=== PATIENT | female | born 1980 | race Caucasian/White ===

== ENCOUNTER → 2016-08-09 | Outpatient (CLI) | payer OTHER ==
[2016-08-09 12:27] LABS: HEMATOCRIT 37.7 % (37-47); MEAN CELL VOLUME 83.6 fL (80-100); MEAN CORPUSCULAR HEMOGLOBIN 27.5 pg (25-34); MEAN CORPUSCULAR HGB CONC 32.9 g/dl (32-36); MEAN PLATELET VOLUME 10.1 fL (7.4-10.4); PLATELET COUNT 315 K/uL (130-400); RED BLOOD COUNT 4.51 M/uL (4.2-5.4); WHITE BLOOD COUNT 8.56 K/uL (4.8-10.8)
[2016-08-09 12:49] LABS: PROLACTIN 7.71 ng/mL
== END | disposition home or self-care (01) ==
LOC: C.LAB 10:27
PROVIDERS: ATTEND Obstetrics & Gynecology
DX: E28.2 Polycystic ovarian syndrome (principal); E03.9 Hypothyroidism, unspecified

== ENCOUNTER → 2016-10-04 | Outpatient (CLI) | payer OTHER ==
[~2016-10-04] MED LIST: DOCU-94 PO; POLY335019 PO; PRENTAB26 PO; RANI150T3 PO; SYN175 PO
== END | disposition home or self-care (01) ==
LOC: C.LAB 18:14
PROVIDERS: ATTEND Obstetrics & Gynecology
DX: E03.9 Hypothyroidism, unspecified (principal)

== ENCOUNTER → 2016-10-30 | Outpatient (CLI) | payer OTHER | END | disposition home or self-care (01) | LOC: C.LAB 13:20 | PROVIDERS: ATTEND Obstetrics & Gynecology | DX: E03.9 Hypothyroidism, unspecified (principal); Z32.00 Encounter for pregnancy test, result unknown ==

== ENCOUNTER → 2016-11-01 | Outpatient (CLI) | payer OTHER | END | disposition home or self-care (01) | LOC: C.LAB 18:43 | PROVIDERS: ATTEND Obstetrics & Gynecology | DX: Z32.00 Encounter for pregnancy test, result unknown (principal) ==

== ENCOUNTER → 2016-11-15 | Outpatient (CLI) | payer OTHER ==
[2016-11-15 12:28] LABS: THYROID STIMULATING HORMONE 4.01 uIu/ml (0.300-4.500)
== END | disposition home or self-care (01) ==
LOC: C.LAB1850 09:59
PROVIDERS: ATTEND Internal Medicine Endocrinology, Diabetes & Metabolism
DX: Z32.00 Encounter for pregnancy test, result unknown (principal); E03.9 Hypothyroidism, unspecified

== ENCOUNTER → 2016-11-27 | Outpatient (CLI) | payer OTHER ==
[2016-11-27 12:14] LABS: BASO % 0.2 %; BASO ABS # 0.02 K/uL (0-0.2); COMPLETE YES; HEMATOCRIT 36.2 % (37-47); IG% 0.2 %; LYMPH % 15.3 %; LYMPH ABS # 1.52 K/uL (1.2-3.4); MEAN CELL VOLUME 84.8 fL (80-100); MEAN CORPUSCULAR HEMOGLOBIN 27.9 pg (25-34); MEAN CORPUSCULAR HGB CONC 32.9 g/dl (32-36); MEAN PLATELET VOLUME 10.3 fL (7.4-10.4); MONO % 6.6 %; NEUT % 76.7 %; PLATELET COUNT 292 K/uL (130-400); RED BLOOD COUNT 4.27 M/uL (4.2-5.4); WHITE BLOOD COUNT 9.96 K/uL (4.8-10.8)
== END | disposition home or self-care (01) ==
LOC: C.LAB1850 10:43
PROVIDERS: ATTEND Obstetrics & Gynecology
DX: O09.299 Supervision of pregnancy with other poor reproductive or obstetric history, unspecified trimester (principal)

== ENCOUNTER → 2016-11-27 | Outpatient (CLI) | payer OTHER ==
[2016-11-27 14:31] LABS: URINE APPEARANCE CLEAR (CLEAR); URINE BILIRUBIN NEG (NEG); URINE COLOR DK YELLOW; URINE EPITHELIAL CELL AUTO >30 /lpf (0-5); URINE NITRITE NEG (NEG); URINE SPECIFIC GRAVITY 1.023 (1.000-1.030); UROBILINOGEN NEG (NEG)
[2016-11-27 14:32] LABS: MANUAL MICROSCOPIC REQUIRED? NO; REVIEW REQ? YES
[2016-11-29 15:37] LABS: CHLAMYDIA TRACH RNA*** NOT DETECTED (NOT DETECTED); GC (NEIS GONORRHOEAE)RNA** NOT DETECTED (NOT DETECTED)
== END | disposition home or self-care (01) ==
LOC: C.LABSPEC 13:42
PROVIDERS: ATTEND Obstetrics & Gynecology
DX: O09.299 Supervision of pregnancy with other poor reproductive or obstetric history, unspecified trimester (principal)

== ENCOUNTER → 2016-12-11 | Outpatient (CLI) | payer OTHER | END | disposition home or self-care (01) | LOC: C.LAB1850 10:34 | PROVIDERS: ATTEND Internal Medicine Endocrinology, Diabetes & Metabolism | DX: E03.9 Hypothyroidism, unspecified (principal) ==

== ENCOUNTER → 2017-01-16 | Outpatient (CLI) | payer OTHER | END | disposition home or self-care (01) | LOC: C.LAB 18:14 | PROVIDERS: ATTEND Internal Medicine Endocrinology, Diabetes & Metabolism | DX: E03.9 Hypothyroidism, unspecified (principal) ==

== ENCOUNTER → 2017-01-23 | Outpatient (CLI) | payer OTHER ==
[2017-01-23 12:50] LABS: GTGD 50 Grams
[2017-01-25 14:53] LABS: AFP CONCENTRATION 26.3 NG/ML; AFPTS GESTATIONAL AGE 16.1 WEEKS; AFPTS INSULIN DEP DIABETIC? NO; AFPTS MATERNAL WT 255 LBS; ALPHA-FETOPROTEIN RACE CAUCASIAN=W; HISTORY OF NTD NO; REPEAT SAMPLE? NO
== END | disposition home or self-care (01) ==
LOC: C.LAB1850 09:15
PROVIDERS: ATTEND Obstetrics & Gynecology
DX: O09.511 Supervision of elderly primigravida, first trimester (principal); Z3A.00 Weeks of gestation of pregnancy not specified

== ENCOUNTER → 2017-02-14 | Outpatient (CLI) | payer OTHER | END | disposition home or self-care (01) | LOC: C.LAB 18:04 | PROVIDERS: ATTEND Internal Medicine Endocrinology, Diabetes & Metabolism | DX: E03.9 Hypothyroidism, unspecified (principal) ==

== ENCOUNTER 2017-04-13 12:20 | Outpatient (CLI) | payer OTHER ==
[~2017-04-13] VITALS: Ht 162.6 cm; Wt 116.1 kg
[2017-04-13 14:11] LABS: THYROID STIMULATING HORMONE 1.06 uIu/ml (0.300-4.500)
[2017-04-13 16:49] VITALS: Ht 162.6 cm; Wt 116.1 kg
[2017-04-13] MEDS ORDERED: RANI150T3 PO (16:52)
[2017-04-13] MEDS ORDERED: POLY335019 PO (16:52)
[2017-04-13] MEDS ORDERED: PRENTAB26 PO (16:52)
[2017-04-13] MEDS ORDERED: SYN175 PO (16:52)
[2017-04-13] MEDS ORDERED: DOCU-94 PO (16:52)
== END 2017-04-13 16:00 | disposition home or self-care (01) ==
LOC: C.OPB 12:20 → C.LD 12:21 → C.OPB 16:00
PROVIDERS: ATTEND Obstetrics & Gynecology
DX: O99.412 Diseases of the circulatory system complicating pregnancy, second trimester (principal); R00.2 Palpitations; O09.522 Supervision of elderly multigravida, second trimester; O99.282 Endocrine, nutritional and metabolic diseases complicating pregnancy, second trimester; O99.212 Obesity complicating pregnancy, second trimester; E66.9 Obesity, unspecified; Z3A.27 27 weeks gestation of pregnancy

== ENCOUNTER → 2017-04-18 | Outpatient (CLI) | payer OTHER ==
[2017-04-18 13:23] LABS: HEMATOCRIT 32.8 % (37-47)
[2017-04-18 13:33] LABS: GTGD 50 Grams
[2017-04-18 14:15] LABS: URINE APPEARANCE CLEAR (CLEAR); URINE BILIRUBIN NEG (NEG); URINE COLOR YELLOW; URINE NITRITE NEG (NEG); URINE PH 7.5 (4.5-7.5); URINE SPECIFIC GRAVITY 1.008 (1.000-1.030); UROBILINOGEN NEG (NEG)
[2017-04-18 14:16] LABS: MANUAL MICROSCOPIC REQUIRED? NO; REVIEW REQ? NO
== END | disposition home or self-care (01) ==
LOC: C.LAB1850 11:11
PROVIDERS: ATTEND Obstetrics & Gynecology
DX: O09.513 Supervision of elderly primigravida, third trimester (principal); Z3A.00 Weeks of gestation of pregnancy not specified

== ENCOUNTER → 2017-06-12 | Outpatient (CLI) | payer OTHER | END | disposition home or self-care (01) | LOC: C.LABSPEC 13:38 | PROVIDERS: ATTEND Obstetrics & Gynecology | DX: O09.513 Supervision of elderly primigravida, third trimester (principal) ==

== ENCOUNTER 2017-07-07 15:43 | Inpatient (IN) | payer OTHER ==
[~2017-07-07] VITALS: Ht 162.6 cm; Wt 125.0 kg
[2017-07-07 17:21] VITALS: Ht 162.6 cm; Wt 125.0 kg
[2017-07-07] MEDS ORDERED: LACTATED RINGER'S 1000ML 1,000 ML IV PRN (17:33)
[2017-07-07] MEDS ORDERED: LACTATED RINGER'S 1000ML 500 ML IV PRN ×2 (17:43→22:17)
[2017-07-07] MEDS ORDERED: OXYTOCIN 30 UNITS/500ML NSS IV PRN (17:45)
[2017-07-07 17:55] LABS: HEMATOCRIT 33.1 % (37-47); HEMOGLOBIN 11.3 g/dL (12.0-16.0); MEAN CORPUSCULAR HEMOGLOBIN 29.4 pg (25-34); MEAN CORPUSCULAR HGB CONC 34.1 g/dl (32-36); MEAN PLATELET VOLUME 11.4 fL (7.4-10.4); PLATELET COUNT 193 K/uL (130-400); RED CELL DISTRIBUTION WIDTH CV 14.9 % (11.5-14.5); RED CELL DISTRIBUTION WIDTH SD 46.5 fL (36.4-46.3); WHITE BLOOD COUNT 9.71 K/uL (4.8-10.8)
[2017-07-07] MEDS: LACTATED RINGER'S 1000ML 1,000 ML IV SCH (18:06)
[2017-07-07] MEDS ORDERED: EpHEDrine SULFATE INJ 50 MG/ML AMP ONE (20:19)
[2017-07-07] MEDS ORDERED: BUPIVACAINE 0.25% 30 ML VIAL ONE (20:19)
[2017-07-07] MEDS ORDERED: FENTANYL 2MCG/ML ROPIV 1.25MG/ML 100ML BAG EPI ONE (20:20)
[2017-07-07] MEDS ORDERED: FENTANYL CITRATE INJ 50 MCG/1 ML 2 ML VIAL ONE (20:20)
[2017-07-07] MEDS ORDERED: LIDOCAINE/EPINEPHRINE 2% 1:200,000 20 ML SDV ONE (21:57)
[2017-07-07] MEDS ORDERED: NALOXONE HCL INJ 1 MG in SODIUM CHLORIDE 0.9% 1000ML 1,000 ML IV PRN (22:17)
[2017-07-07] MEDS ORDERED: ONDANSETRON INJ 2 MG/ML 2 ML VIAL IV PRN (22:30)
[2017-07-07] MEDS ORDERED: DiphenhydrAMINE HCL 50 MG/ML VIAL IV PRN (22:30)
[2017-07-07] MEDS ORDERED: EpHEDrine SULFATE INJ 50 MG/ML AMP IV PRN (22:30)
[2017-07-07] MEDS ORDERED: NALOXONE HCL INJ 0.4 MG/1 ML VIAL/CARP IV PRN (22:30)
[2017-07-07] MEDS: FENTANYL 2MCG/ML ROPIV 1.25MG/ML 100ML BAG EPI PRN ×2 (22:55→23:30)
[2017-07-07] MEDS ORDERED: NURSING VERBAL MED ORDER ONE (23:45)
[2017-07-08] MEDS ORDERED: BUPIVACAINE 0.25% 30 ML VIAL ONE (00:32)
[2017-07-08] MEDS ORDERED: EpHEDrine SULFATE INJ 50 MG/ML AMP ONE (00:32)
[2017-07-08] MEDS ORDERED: FENTANYL 2MCG/ML ROPIV 1.25MG/ML 100ML BAG EPI ONE (00:33)
[2017-07-08] MEDS ORDERED: FENTANYL CITRATE INJ 50 MCG/1 ML 2 ML VIAL ONE (00:33)
[2017-07-08] MEDS ORDERED: NALOXONE HCL INJ 1 MG in SODIUM CHLORIDE 0.9% 1000ML 1,000 ML IV PRN ×4 (00:57)
[2017-07-08] MEDS ORDERED: LACTATED RINGER'S 1000ML 500 ML IV PRN (00:57)
[2017-07-08] MEDS ORDERED: PROMETHAZINE HCL INJ 25 MG in SODIUM CHLORIDE 0.9% 50ML 50 ML IV PRN (01:00)
[2017-07-08] MEDS ORDERED: EpHEDrine SULFATE INJ 50 MG/ML AMP IV PRN (01:00)
[2017-07-08] MEDS ORDERED: DiphenhydrAMINE HCL 50 MG/ML VIAL IV PRN (01:00)
[2017-07-08] MEDS ORDERED: NALOXONE HCL INJ 0.4 MG/1 ML VIAL/CARP IV PRN (01:00)
[2017-07-08] MEDS ORDERED: ONDANSETRON INJ 2 MG/ML 2 ML VIAL IV PRN (01:00)
[2017-07-08] MEDS ORDERED: NALBUPHINE HCL INJ 10 MG/ML AMP IV PRN (01:00)
[2017-07-08] MEDS ORDERED: FENTANYL 2MCG/ML ROPIV 1.25MG/ML 100ML BAG EPI PRN (01:00)
--- NOTE | 2017-07-08 01:12 | Progress Note ---
Progress Note Date of Service Jul 08, 2017. Progress Note Called to L&D to check on this patient's epidural that was placed earlier by Dr. Gramajo. Pt is currently 9cm, having a lot of pain and not getting relief from the epidural. Patient describes her pain on her abdomen and it's not just pressure. Explained to patient that we will have to replace the epidural as it doesn't seem to be working. Patient agreed to proceed. Pt placed on sitting position. Previous epidural catheter was removed. Her back was prepped with duraprep after time out was completed. Sterile technique was used throughout. 3ml of 1% lidocaine sq was injected through L3-4 space. 17g touhy needle placed. LORTA at 8.5cm. 26g sprotte spinal needle placed through touhy with clear CSF fluid return. No heme or paresthesia noted. 20mcg of fentanyl plus 1ml of 0.25% bupivacaine was injected through spinal needle. Spinal needle was then removed and flextip catheter was inserted without difficulty to 15cm. 3ml of 1.5% lidocaine with epi test dose was given with negative result. Catheter secured and infusion restarted. Pt tolerated procedure well and is feeling much comfortable now. VSS was stable throughout.
[2017-07-08] MEDS: LACTATED RINGER'S 1000ML 1,000 ML IV SCH ×2 (02:16→05:20)
[2017-07-08] MEDS ORDERED: NURSING VERBAL MED ORDER ONE ×4 (02:45→21:00)
[2017-07-08] MEDS ORDERED: CALCIUM CARBONATE 500 MG CHEWABLE ONE (02:46)
[2017-07-08] MEDS ORDERED: CALCIUM CARBONATE 500 MG CHEWABLE PO PRN (03:00)
[2017-07-08] MEDS ORDERED: LACTATED RINGER'S 1000ML 1,000 ML IV SCH (06:35)
[2017-07-08] MEDS ORDERED: LANOLIN OINT EXT PRN (06:45)
[2017-07-08] MEDS ORDERED: OXYCODONE/ACETAMINOPHEN 5-325 TAB PO PRN (06:45)
[2017-07-08] MEDS ORDERED: SUPERCREAM 0.870 % 15GM JAR EXT PRN (06:45)
[2017-07-08] MEDS ORDERED: DIPHTHERIA/TETANUS/PERTUSSIS 0.5 ML SYR/VIAL IM. ONE (06:45)
[2017-07-08] MEDS ORDERED: HYDROCORTISONE ACETATE 25 MG SUPP PR PRN (06:45)
[2017-07-08] MEDS ORDERED: MEASLES, MUMPS & RUBELLA VIRUS VIAL SQ. ONE (06:45)
[2017-07-08] MEDS ORDERED: ACETAMINOPHEN 325 MG TAB PO PRN (06:45)
[2017-07-08] MEDS ORDERED: OXYTOCIN 30 UNITS/500ML NSS IV PRN (06:45)
[2017-07-08] MEDS ORDERED: BENZOCAINE 20% AER SPR 82.5 GM CAN EXT PRN (06:45)
--- NOTE | 2017-07-08 06:49 | Discharge Instructions ---
Discharge Instructions Date of Service Jul 08, 2017. Admission Reason for Admission: Check Labor Discharge Discharge Diagnosis / Problem: vaginal delivery Discharge Goals Goal(s): Routine recovery after delivery Activity Recommendations Activity Limitations: per Instructions/Follow-up section . Instructions / Follow-Up Instructions / Follow-Up ACTIVITY RECOMMENDATIONS: * Gradual return to full activity over the next 2-3 weeks. * No lifting - nothing heavier than baby over the next 2-3 weeks. * Do not engage in vigorous exercise, sexual activity or sports until cleared by your physician. * Do not drive or operate any motorized equipment until cleared by your physician. * You may shower/bathe daily. MEDICATIONS: For discomfort or pain, you may use Acetaminophen (Tylenol), Ibuprofen (Advil), or Naproxen (Aleve) following the package directions. For constipation you may use Colace following the package directions. BREAST CARE: If you are not breast feeding: * Wear a supportive bra 24 hours a day for one to two weeks. * Avoid stimulating your breasts and nipples as much as possible during the first few weeks after delivery. * When taking a shower, have the warm water hit your back, not breasts. * When your breasts feel full, apply ice packs. Usually three to four times a day helps ease the discomfort. * Take a mild pain medication (Tylenol / Motrin) when you are uncomfortable. If breast feeding: * Use breast milk to lubricate nipples. Lansinoh cream may be used for sore nipples. You do not need to remove cream prior to breast feeding. If using a different brand of cream, check the label for directions regarding removal of cream prior to nursing. * Wear a supportive bra. * If having problems with breasts or breast feeding, call a [employer] consultant or your health care provider. EPISIOTOMY CARE: After delivery, if you have an episiotomy (stitches), the following steps will ease discomfort and aid healing. * For the first 24 hours after delivery, place ice packs next to your episiotomy to help reduce swelling. * After the first 24 hour-period, sitz baths, either portable or in the tub, are suggested. A shower with a shower arm sprayed over the episiotomy may be comforting. * Maria Isabel care should be done after each voiding and bowel movement. Squirt warm water from a plastic bottle over the perineum (region of the body between the anus and urinary opening) and pat dry. * Use Dermoplast to ease discomfort. Shake container. [place] directly over the episiotomy. Place a Tucks on a clean sanitary pad next to your episiotomy. SPECIAL CARE INSTRUCTIONS: When you are discharged from the hospital, it is important for you to follow the instructions listed below: * During the first week at home, you should be able to care for yourself and your baby. In addition, the usual light household activities are encouraged. * Limit your activities to the way you feel. Do not try to clean the house or move furniture. Be sensible. * If you actively engage in sports and have done so up until the time of your delivery, you may resume these activities as soon as you feel able. This may take up to one month or even longer. Use good judgment. * Continue to take your vitamins for at least six weeks after the of your baby. * Your diet need not be limited unless you were on a special diet before your delivery. Breast-feeding mothers need around 2500 calories per day and at least 64-80 ounces of fluid per day (8 to 10 glasses). * You should eat foods from the four major food groups. Crash diets or fad diets are to be avoided. Eating lean meats, fresh fruits and vegetables, low-fat dairy products, high fiber foods and a regular exercise program, will help you get back to your pre- weight without putting your health at risk. * Constipation is sometimes a problem after delivery. Take a mild laxative as needed. If breast feeding, Milk of Magnesia is acceptable to use. You may use a suppository or Fleets enema if no episiotomy. * A daily shower or tub bath is suggested. Be sure to thoroughly and gently dry the perineum. * A bloody vaginal discharge will usually continue until around four weeks post . A small amount of bleeding may continue for as long as six weeks. Vaginal discharge changes from the bright red bleeding after delivery to pink then brownish and finally yellowish-pink before becoming white and disappearing. * Bleeding may increase with activity. Your first period may come in 4-8 weeks. If you are breast feeding, your period may be delayed even longer. * Athalia (sex) can begin whenever both you and your partner feel comfortable and do not have any form of genital infection. It is recommended that you wait at least six weeks for internal and external healing to occur. If you have questions, please talk to your health care practitioner. A condom should be used to prevent infection and . * Foreplay, gentle intercourse and lubrication is very important the first several times to prevent pain. A water-based lubricant such as K-Y jelly or Astroglide may be used. * If you have RH negative blood and your baby is RH positive, you will receive RHOGAM by injection prior to discharge. The nurse will give you a card to keep with you that has the date and place that you received RHOGAM after delivery. * During your care, you had a Rubella screen done to check for the presence of rubella antibodies in your blood. If your test was negative, you will receive a Rubella vaccine prior to discharge. This vaccine may cause a fever, soreness at the injection site and flu-like symptoms. If these symptoms persist, notify your health care practitioner. is not advised for one month after a Rubella vaccine. * Verbalizes understanding of car seat law as reviewed with patient nursing. * Car Seat hand-out given and reviewed with patient by nursing. * Shaken baby information reviewed with patient by nursing. Call you doctor if: * Heavy bleeding (saturating several pads an hour) or passing clots the size of your fist. * A fever >101 degrees F (38.3 degrees C) on two occasions four hours apart and /or chills. * Unusual pain in the pelvic or vaginal areas. * "Baby Blues" lasting longer than two weeks. If you have any questions or concerns, call your health care practitioner at . FOLLOW UP VISIT: * Please call the office at to schedule a 6 week examination. It is important you keep this appointment. It is important for you to make arrangements for either yearly or twice yearly check-ups thereafter. Current Hospital Diet Patient's current hospital diet: Regular OB Diet Discharge Diet Recommended Diet: Regular Diet Pending Studies Studies pending at discharge: no Medical Emergencies . Who to Call and When: Medical Emergencies: If at any time you feel your situation is an emergency, please call 911 immediately. . Non-Emergent Contact Non-Emergency issues call your: Primary Care Provider . . "Provider Documentation" section prepared by Yumi Sheffield. . VTE Core Measure Inpt VTE Proph given/why not?: Treatment not indicated
--- NOTE | 2017-07-08 07:18 | Anesthesia Procedure Note ---
Anesthesia Epidural Removal Nt Date & Time Jul 08, 2017 at 07:17 Vital Signs Pain Intensity: 0.0 Notes Mental Status: alert / awake / arousable, participated in evaluation Nausea / Vomiting: adequately controlled Pain: adequately controlled Airway Patency, RR, SpO2: stable & adequate BP & HR: stable & adequate Hydration State: stable & adequate Neuraxial Anesthesia: was administered, sensory block is resolving Anesthetic Complications: no major complications apparent, pt satisfied with anesthetic care Epidural: removed without complications, with tip intact
[2017-07-08] MEDS ORDERED: LEVOTHYROXINE 175 MCG TAB PO SCH ×2 (07:30→23:00)
[2017-07-08] MEDS: DOCUSATE SODIUM 100 MG CAP PO SCH ×2 (08:00→19:56)
[2017-07-08] MEDS: PRENATAL VITAMIN TAB PO SCH (08:00)
[2017-07-08] MEDS: FERROUS SULFATE 325 MG TAB PO SCH (08:00)
[2017-07-08] MEDS ORDERED: ONDANSETRON INJ 2 MG/ML 2 ML VIAL ONE (08:12)
[2017-07-08] MEDS ORDERED: ONDANSETRON INJ 2 MG/ML 2 ML VIAL IV ONE (08:30)
--- NOTE | 2017-07-08 08:35 | DELIVERY SUMMARY ---
DATE OF OPERATION: 07/08/2017 PREOPERATIVE DIAGNOSES: 1. Thompson intrauterine at term. 2. Spontaneous onset of early labor. 3. Nonreassuring heart tones. 4. Augmentation of early labor. POSTOPERATIVE DIAGNOSES: Same. PROCEDURE: Spontaneous vaginal delivery and repair of a second-degree laceration. SURGEON: Yumi Sheffield MD DIFFERENTIAL REPAIRER: None. ESTIMATED BLOOD LOSS: 350 mL. COMPLICATIONS: None. DISPOSITION: Stable in labor and delivery. DESCRIPTION OF PROCEDURE: Latesha is a G2, P0, who presented with a at 39 and 5/7th weeks' gestation with a complaint of uterine contractions. Although, she was jase and her cervix was very mildly changed compared to her prior office exam, during the period of observation here on labor and delivery, her baby had a significant deceleration. For that reason, we elected to admit her and augment her very very early labor in order to effect the delivery. The patient was managed with artificial rupture of membranes. Pitocin and an epidural for pain management, which had to be replaced due to insufficient release. Ultimately, she did reach complete dilation. She was allowed to labor down at significant amount of time in order to give mother some rest since her pain management was really only adequate at the same time as she was found to be completely dilated. Once the patient was able to get some rest and then, awoke feeling ready to push, she was pushed to her second stage of labor, which was both brief and effective and she delivered the head of her infant in an occiput anterior position. There was a very tight nuchal cord, which was then reduced and the rest of the infant delivered without any difficulty. Vigorous infant was placed on the maternal abdomen, where the cord was doubly clamped and cut. The placenta delivered spontaneously and was intact. Examination of the cervix, vagina, perineum and rectum revealed that there was a second-degree laceration. This was repaired in the usual fashion with 2-0 and 3-0 Vicryl suture. At the completion of repair, the skin was cosmetically restored and hemostatic. Of note, there was not felt to be any rectal injury. The patient is currently in stable condition in her room, having tolerated the delivery well with a firm fundus and normal lochia. I attest to the content of the Intraoperative Record and any orders documented therein. Any exception s are noted below.
[2017-07-08] MEDS: IBUPROFEN 600 MG TAB PO PRN ×3 (11:36→19:56)
[2017-07-08 11:45] VITALS: BP 113/53; PULSE 88; TEMP 36.6
[2017-07-08 15:35] VITALS: BP 126/78; PULSE 99; TEMP 36.9
[2017-07-08 19:25] VITALS: BP 129/80; PULSE 76; TEMP 36.9; O2SAT 98
[2017-07-08] MEDS ORDERED: RANITIDINE HCL 150 MG TAB PO SCH (21:00)
[2017-07-08 23:05] VITALS: BP 129/77; PULSE 90; TEMP 36.7; O2SAT 96
[2017-07-09] MEDS: IBUPROFEN 600 MG TAB PO PRN ×3 (00:18→10:19)
[2017-07-09 04:00] VITALS: BP 114/68; PULSE 77; TEMP 36.5; O2SAT 95
--- NOTE | 2017-07-09 06:47 | Progress Note ---
Subjective Jul 09, 2017. Subjective conversation w/ patient, physical exam Ambulation: ambulating normally Voiding: no voiding problems Passing Gas: Yes Diet Tolerance: Regular Diet Lochia: Moderate Feeding Type: Breast Feeding Review of Systems Constitutional: No fever, No chills Respiratory: No cough Cardiac: No chest pain Abdomen: No nausea, No vomiting Objective Vital Signs Date Time Temp Pulse Resp B/P (MAP) Pulse Ox O2 Delivery O2 Flow Rate FiO2 07/09/17 04:00 36.5 77 18 114/68 (83) 95 Room Air 07/08/17 23:05 96 Room Air 07/08/17 23:05 36.7 90 18 129/77 (94) 96 Room Air 07/08/17 19:25 36.9 76 20 129/80 (96) 98 Room Air 07/08/17 15:35 Room Air 07/08/17 15:35 36.9 99 20 126/78 (94) Room Air 07/08/17 11:45 36.6 88 20 113/53 (73) Room Air 07/08/17 11:45 Room Air Physical Exam General Appearance: WELL-APPEARING, NO APPARENT DISTRESS Respiratory/Chest: no respiratory distress, no accessory muscle use Cardiovascular: no edema Abdomen: non tender, soft Fundus: Firm Extremities: no calf tenderness Laboratory Results Last 24 Hours Test 07/09/17 04:44 Assessment and Plan Day#: 1 Continue Routine Care: Desires D/C today. Instructions reviewed.
[2017-07-09 07:22] LABS: HEMATOCRIT 27.6 % (37-47); HEMOGLOBIN 9.4 g/dL (12.0-16.0)
[2017-07-09 07:36] VITALS: BP 126/81; PULSE 83; TEMP 36.6; O2SAT 96
[2017-07-09] MEDS: DOCUSATE SODIUM 100 MG CAP PO SCH (08:08)
[2017-07-09] MEDS: FERROUS SULFATE 325 MG TAB PO SCH (08:08)
[2017-07-09] MEDS: PRENATAL VITAMIN TAB PO SCH (08:08)
[2017-07-09 14:05] VITALS: BP_DIAS 81; PULSE 83; TEMP 36.6
== END 2017-07-09 15:38 | disposition home or self-care (01) | DRG 775 ==
LOC: C.LD 15:43 → C.OPB 15:43 → C.LD 17:34 → C.OBG 07-08 14:20
PROVIDERS: ADMIT Obstetrics & Gynecology; ATTEND Obstetrics & Gynecology
PROC: 0KQM0ZZ Repair Perineum Muscle, Open Approach (ICD-10-PCS; principal; 2017-07-08)
PROC: 10E0XZZ Delivery of Products of Conception, External Approach (ICD-10-PCS; principal; 2017-07-08)
PROC: 3E0R3NZ Introduction of Analgesics, Hypnotics, Sedatives into Spinal Canal, Percutaneous Approach (ICD-10-PCS; 2017-07-08)
DX: O76 Abnormality in fetal heart rate and rhythm complicating labor and delivery (principal); O70.1 Second degree perineal laceration during delivery; O09.523 Supervision of elderly multigravida, third trimester; O69.1XX0 Labor and delivery complicated by cord around neck, with compression, not applicable or unspecified; Z37.0 Single live birth; Z3A.39 39 weeks gestation of pregnancy

== ENCOUNTER → 2017-08-21 | Outpatient (CLI) | payer OTHER ==
[~2017-08-21] MED LIST changes: -POLY335019 PO
== END | disposition home or self-care (01) ==
LOC: C.LAB1850 11:27
PROVIDERS: ATTEND Internal Medicine Endocrinology, Diabetes & Metabolism
DX: E03.9 Hypothyroidism, unspecified (principal)

== ENCOUNTER → 2017-08-21 | Outpatient (CLI) | payer OTHER | END | disposition home or self-care (01) | LOC: C.PAPS 14:26 | PROVIDERS: ATTEND Obstetrics & Gynecology | DX: Z12.4 Encounter for screening for malignant neoplasm of cervix (principal) ==

== ENCOUNTER → 2017-12-13 | Outpatient (CLI) | payer OTHER ==
[2017-12-13 17:50] LABS: BASO % 0.2 %; BASO ABS # 0.02 K/uL (0-0.2); EOS % 1.8 %; EOS ABS # 0.16 K/uL (0-0.5); HEMATOCRIT 36.1 % (37-47); HEMOGLOBIN 11.7 g/dL (12.0-16.0); IG# 0.02 K/uL (0.00-0.02); LYMPH % 30.6 %; LYMPH ABS # 2.77 K/uL (1.2-3.4); MEAN CELL VOLUME 81.9 fL (80-100); MEAN CORPUSCULAR HEMOGLOBIN 26.5 pg (25-34); MEAN CORPUSCULAR HGB CONC 32.4 g/dl (32-36); MEAN PLATELET VOLUME 10.5 fL (7.4-10.4); MONO % 7.1 %; MONO ABS # 0.64 K/uL (0.11-0.59); NEUT % 60.1 %; NEUT ABS # 5.45 K/uL (1.4-6.5); PLATELET COUNT 263 K/uL (130-400); RED CELL DISTRIBUTION WIDTH CV 16.1 % (11.5-14.5); RED CELL DISTRIBUTION WIDTH SD 48.5 fL (36.4-46.3); WHITE BLOOD COUNT 9.06 K/uL (4.8-10.8)
[2017-12-13 18:11] LABS: ALBUMIN 3.6 gm/dl (3.4-5.0); ALKALINE PHOSPHATASE 90 U/L (45-117); ALT/SGPT 17 U/L (12-78); AST/SGOT 14 U/L (15-37); BLOOD UREA NITROGEN 17 mg/dl (7-18); CALCIUM 8.6 mg/dl (8.5-10.1); CARBON DIOXIDE 27 mmol/L (21-32); GLUCOSE 88 mg/dl (70-99); POTASSIUM 3.6 mmol/L (3.5-5.1); SODIUM 139 mmol/L (136-145); TOTAL PROTEIN 7.3 gm/dl (6.4-8.2); TRANSFERRIN 287 mg/dl (200-360)
== END | disposition home or self-care (01) ==
LOC: C.LAB 17:15
PROVIDERS: ATTEND Physician Assistant
DX: R53.81 Other malaise (principal); R53.83 Other fatigue; Z86.2 Personal history of diseases of the blood and blood-forming organs and certain disorders involving the immune mechanism; E03.9 Hypothyroidism, unspecified